=== PATIENT | female | born 1970 | race Caucasian/White ===

== ENCOUNTER 2023-03-18 20:17 | Emergency (ER) | payer OTHER ==
[~2023-03-18] VITALS: Ht 167.6 cm; Wt 90.7 kg
[2023-03-18 20:23] VITALS: BP 123/74; PULSE 72; RESP 18; TEMP 97.4; O2SAT 98
[2023-03-18] MEDS ORDERED: IBUP-2213 PO (20:59)
[2023-03-18 21:22] VITALS: BP 123/74; PULSE 72; RESP 18; TEMP 97.4; O2SAT 98
== END 2023-03-18 21:22 | disposition home or self-care (01) ==
LOC: MED 20:24
DX: M25.531 Pain in right wrist (principal); Z79.899 Other long term (current) drug therapy
CPT/HCPCS: 73110; 99283